=== PATIENT | male | born 1980 | race Caucasian/White ===

== ENCOUNTER 2017-09-24 04:18 | Emergency (ER) | payer OTHER ==
[2017-09-24] MEDS ORDERED: NACL 0.9% 1000 ML 1,000 ML IV ONE (04:24)
--- NOTE | 2017-09-24 04:25 | Emergency Department Report ---
ED General Adult HPI - General Chief complaint: Altered Mental Status Stated complaint: UNRESPONSIVE Time Seen by Provider: 09/24/17 04:24 Source: EMS (verbal report received from EMS.ems notes not available at time of chart dictation) Mode of arrival: Carried (Peds) Limitations: Altered Mental Status, Physical Limitation - History of Present Illness Initial comments: This is a 36-year-old male who is brought to the hospital by EMS for altered mental status. As per verbal report from EMS, patient found in bed, not really responsive, no evidence of trauma, further report that there is no evidence of drug paraphernalia. They report patient was not breathing well and the field. Upon arrival to the ER, the patient was somnolent and arousable and protecting his airway, and smells strongly of alcohol. Patient was not able to describe exacerbating or relieving factors. History is limited there is no other family available, nose available for corroborating information. -: unknown Radiation: other (per hpi) Quality: other (per hpi) Consistency: other (per hpi) Improves with: other (per hpi) Worsens with: other (per hpi) Associated Symptoms: other (per hpi) - Related Data Allergies Allergy/AdvReac Type Severity Reaction Status Date / Time No Known Allergies Allergy Unverified 09/24/17 05:38 ED Review of Systems ROS: Stated complaint: UNRESPONSIVE Other details as noted in HPI Comment: Unobtainable due to pts medical conditions ED Physical Exam - General Limitations: Altered Mental Status, Physical Limitation General appearance: in no apparent distress, lethargic - Head Head exam: Present: atraumatic, normocephalic - Eye Eye exam: Present: normal appearance, PERRL, EOMI - ENT ENT exam: Present: mucous membranes moist, other (patient has poor dentition) - Neck Neck exam: Present: normal inspection, full ROM - Respiratory Respiratory exam: Present: normal lung sounds bilaterally. Absent: respiratory distress - Cardiovascular Cardiovascular Exam: Present: regular rate, normal rhythm, normal heart sounds. Absent: systolic murmur, diastolic murmur, rubs, gallop - GI/Abdominal GI/Abdominal exam: Present: soft, normal bowel sounds. Absent: distended, tenderness, guarding, rebound, rigid, pulsatile mass - Rectal Rectal exam: Present: normal inspection - exam: Present: normal inspection - Extremities Exam Extremities exam: Present: normal inspection. Absent: tenderness, pedal edema, joint swelling, calf tenderness - Back Exam Back exam: Present: normal inspection. Absent: tenderness, CVA tenderness (R), paraspinal tenderness, vertebral tenderness - Neurological Exam Neurological exam: Present: altered, other (patient is intoxicated, moves 4 extremities spontaneously, answers some questions) - Psychiatric Psychiatric exam: Present: flat affect - Skin Skin exam: Present: warm, dry, intact, normal color. Absent: rash ED Course Vital Signs 09/24/17 04:44 Temperature 97.1 F L Pulse Rate 94 H Respiratory 28 H Rate Blood Pressure 118/90 O2 Sat by Pulse 100 Oximetry - Reevaluation(s) Reevaluation #1: 09/24/17 05:21 Differential diagnosis, including but not limited to: Intracranial injury, cervical spine injury, alcohol intoxication, pneumonia Assessment and plan: 36-year-old male was altered but protecting his airway, saturating well, most likely with alcohol intoxication. CT scan of the brain and cervical spine pending. Laboratory studies pending. X-ray of the chest is negative. Reevaluation #2: 09/24/17 05:46 Blood alcohol level is markedly elevated at 0.61%. Serum toxicology studies otherwise unremarkable. Patient will be admitted to the hospital for toxic metabolic encephalopathy and airway observation. \\\\ 09/24/17 05:47 Care will be transferred to the oncoming ER physician, Dr. Ivory Vicente contact the morning medical team to arrange admission. Reevaluation #3: 09/24/17 05:[address] scan of the brain is negative for traumatic findings, x-ray the chest is negative. ED Medical Decision Making - Lab Data Result diagrams: 09/24/17 04:46 09/24/17 04:46 Vital Signs 09/24/17 04:44 Temperature 97.1 F L Pulse Rate 94 H Respiratory 28 H Rate Blood Pressure 118/90 O2 Sat by Pulse 100 Oximetry Laboratory Last Values WBC 6.0 K/mm3 (4.5-11.0) 09/24/17 04:46 RBC 4.40 M/mm3 (3.65-5.03) 09/24/17 04:46 Hgb 15.2 gm/dl (11.8-15.2) 09/24/17 04:46 Hct 43.6 % (35.5-45.6) 09/24/17 04:46 MCV 99 fl (84-94) H 09/24/17 04:46 MCH 34 pg (28-32) H 09/24/17 04:46 MCHC 35 % (32-34) H 09/24/17 04:46 RDW 13.5 % (13.2-15.2) 09/24/17 04:46 Plt Count 101 K/mm3 (140-440) L 09/24/17 04:46 - EKG Data -: EKG Interpreted by Me EKG shows normal: sinus rhythm - EKG Data 09/24/17 05:57 Sinus, 62 bpm, normal axis, high left ventricular voltage, abnormal EKG, not having chest pain, motion artifact, not morphologically consistent with ST elevation myocardial infarction. - Radiology Data Radiology results: report reviewed, image reviewed X-ray the chest, interpreted by myself and radiology: No acute disease Critical care attestation.: If time is entered above; I have spent that time in minutes in the direct care of this critically ill patient, excluding procedure time. ED Disposition Clinical Impression: Alcohol intoxication, Toxic encephalopathy Disposition: DC-09 OP ADMIT IP TO THIS HOSP Is pt being admited?: Yes Condition: Good Referrals: COOPER DUMONT MD [Primary Care Provider] - 3-5 Days
--- NOTE | 2017-09-24 04:57 | XRay Report ---
FINAL REPORT EXAM: XR CHEST 1V AP HISTORY: Altered Mental Status TECHNIQUE: AP portable view(s) of the chest obtained. PRIORS: None. FINDINGS: No mediastinal shift. Cardiac silhouette is not enlarged. No pneumothorax, effusion, or focal pulmonary opacity identified. No acute skeletal findings. IMPRESSION: No acute pulmonary finding identified.
[2017-09-24 05:15] LABS: Hematocrit 43.6 % (35.5-45.6); Hemoglobin 15.2 gm/dl (11.8-15.2); Mean Corpuscular HGB Conc 35 % (32-34); Mean Corpuscular Hemoglobin 34 pg (28-32); Mean Corpuscular Volume 99 fl (84-94); Platelet Count 101 K/mm3 (140-440); Red Cell Distribution Width 13.5 % (13.2-15.2)
[2017-09-24 05:24] LABS: INR 0.8 (0.87-1.13)
[2017-09-24 05:31] LABS: BUN/Creatinine Ratio 8; Blood Urea Nitrogen 3 mg/dL (9-20); Calcium 8.2 mg/dL (8.4-10.2); Hemolysis Index 54
--- NOTE | 2017-09-24 05:54 | Cat Scan Report ---
FINAL REPORT EXAM: CT HEAD/BRAIN WO CON HISTORY: Altered Mental Status ETOH TECHNIQUE: CT imaging is acquired through the brain without contrast. Transaxial reformations are provided. PRIORS: None. FINDINGS: Examination is compromised by streak artifact. Ventricles and CSF spaces are proportionately enlarged, consistent with parenchymal atrophy. Tong and white matter differentiation is within normal limits. No acute intracranial hemorrhage or mass effect. No skull fracture. No significant abnormality within the imaged paranasal sinuses or mastoid air cells. IMPRESSION: No acute intracranial abnormality. There are chronic sequela of parenchymal atrophy, which are significant for patient's age, and may be secondary to reported alcohol use or underlying neuro degenerative disorder. Consider neurology follow-up.
--- NOTE | 2017-09-24 06:00 | Cat Scan Report ---
FINAL REPORT EXAM: CT CERVICAL SPINE WO CON HISTORY: etoh ams TECHNIQUE: CT imaging is acquired through the cervical spine without contrast. Transaxial, coronal and sagittal reformations are provided. PRIORS: None. FINDINGS: The cervical spine is intact. Vertebral body heights are preserved. Nonaggressive subcentimeter cyst within C5 is noted. No acute fracture or listhesis. Atlanto-dens interval and odontoid process are intact. Intervertebral disc spaces are preserved. Scattered mid to upper cervical endplate spondylosis. No perivertebral soft tissue swelling or hematoma identified. Limited soft tissue exam of the visualized neck is unremarkable. IMPRESSION: No acute cervical spine fracture identified. Correlate with physical exam and follow up as warranted.
[2017-09-24 07:03] LABS: Bilirubin,Urine NEG (Negative); Color,Urine Straw (Yellow)
[2017-09-24 07:04] LABS: Bacteria,Urine 1+ /HPF (Negative); Blood,Urine NEG (Negative); Nitrite,Urine NEG (Negative); Protein,Urine <15 mg/dL mg/dL (Negative); Urobilinogen,Urine < 2.0 mg/dL (<2.0)
[2017-09-24 07:07] LABS: RBC,Urine < 1.0 /HPF (0.0-6.0); WBC,Urine < 1.0 /HPF (0.0-6.0)
[2017-09-24 07:11] LABS: Amphetamine Screen,Urine PRESUMPTIVE NEGATIVE; Benzodiazepines Screen,Urine PRESUMPTIVE NEGATIVE; Cannabinoid Screen,Urine PRESUMPTIVE NEGATIVE; Cocaine Screen,Urine PRESUMPTIVE NEGATIVE; Methadone Screen,Urine PRESUMPTIVE NEGATIVE; Opiate Screen,Urine PRESUMPTIVE NEGATIVE
--- NOTE | 2017-09-24 07:54 | Emergency Department Report ---
Skylar Doc - Documentation Documentation: I was asked by my colleague, Dr. Field, to get this patient admitted on his behalf secondary to a toxically high alcohol level. The admitting hospitalist service came and saw the patient but says that he does not want to be admitted and wants to go home. While the patient is visibly intoxicated and slightly agitated, he is able to answer some questions appropriately regarding person place and time to the point where the hospitalist service does not want to admit him. However the patient says that there is no family that can come and get him and take responsibility for him. For this reason the patient has been made a 2013 as I do not feel that he is sober enough to be able to take responsibility for himself and make logical decisions. We will get him fluids, banana bag and continue to monitor.
[2017-09-24] MEDS ORDERED: ATIVAN ONE (08:04)
[2017-09-24] MEDS ORDERED: ATIVAN IV ONE (08:19)
[2017-09-24] MEDS ORDERED: VITAMIN B-1 100 MG, FOLVITE 1 MG, INFUVITE 10 ML in NACL 0.9% 1000 ML 1,000 ML IV ONE (08:30)
[2017-09-24 08:58] VITALS: BP 124/89
== END 2017-09-24 20:30 | disposition admitted as inpatient to this hospital (09) ==
LOC: EEVIPCON 04:18 → ED 04:18
DX: F10.129 Alcohol abuse with intoxication, unspecified (principal); G92 Toxic encephalopathy
CPT/HCPCS: 36415; 51701; 70450; 71010; 72125; 80048; 80307; 81001; 82550; 83735; 85027; 85610; 93005; 93010; 96361; 96365; 96375; 99285; G0480; J2060; J3411; J7030; 80320